=== PATIENT | male | born 1950 | race Caucasian/White ===

== ENCOUNTER → 2021-11-23 11:54 | Outpatient (CLI) | payer OTHER, SELFPAY ==
--- NOTE | 2021-11-23 | DI.US.S_ITS ---
PROCEDURE: US ABD AORTA ANEURYSM SCREEN INDICATIONS: AAA SCREEN TECHNIQUE: Real time scanning was performed of the aorta and iliac arteries, with image documentation. COMPARISON: None. FINDINGS: Aorta: Proximal aortic diameter measures 1.5 cm. Mid-aorta measures 1.5 cm. Distal aortic diameter is 1.5 cm. Iliac arteries: Right common iliac artery measures 1 cm. Left common iliac artery measures 1 cm. IMPRESSION: Negative for aneurysm. Dictated by: Silvestre Rehman M.D. on 11/23/2021 at 12:39 Approved by: Silvestre Rehman M.D. on 11/23/2021 at 12:40
== END ==
PROVIDERS: Referring Provider Nurse Practitioner; Visit Provider Nurse Practitioner
DX: Z72.0 Tobacco use (principal)
CPT/HCPCS: 76706